=== PATIENT | male | born 2000 | race African-American/Black ===

== ENCOUNTER 2021-06-11 15:17 | Emergency (ER) | payer OTHER ==
[~2021-06-11] VITALS: Ht 175.3 cm; Wt 75.0 kg
[2021-06-11 17:44] LABS: BASO % 0.4 % (0.0-1.0); EOS % 0.3 % (0.0-3.0); HEMATOCRIT 33.7 % (42.0-52.0); LYMPH # 1.2 10^3/uL (1.5-5.0); LYMPH % 16.5 % (24.0-44.0); MEAN CORPUSCULAR HGB CONC 35.6 g/dl (32.0-36.5); MEAN CORPUSCULAR VOLUME 78.7 fl (80.0-96.0); MONO # 0.7 10^3/uL (0.0-0.8); MONO % 9.7 % (2.0-8.0); NEUTROPHILS # 5.5 10^3/uL (1.5-8.5); NEUTROPHILS % 72.7 % (36.0-66.0); PLATELET COUNT, AUTOMATED 202 10^3/uL (150-450); RED BLOOD COUNT 4.28 10^6/uL (4.30-6.10); WHITE BLOOD COUNT 7.5 10^3/uL (4.0-10.0)
[2021-06-11 17:51] LABS: INR 1.11; PROTHROMBIN TIME 14.7 SECONDS (12.7-14.5)
[2021-06-11 17:52] LABS: PARTIAL THROMBOPLASTIN TIME 36.9 SECONDS (25.9-37.0)
[2021-06-11 18:03] LABS: ALBUMIN 4.4 GM/DL (3.2-5.2); ALT/SGPT 25 U/L (12-78); BILIRUBIN,TOTAL 9.2 MG/DL (0.2-1.0); BLOOD UREA NITROGEN 12 MG/DL (7-18); CALCIUM LEVEL 9.3 MG/DL (8.5-10.1); CARBON DIOXIDE LEVEL 31 MEQ/L (21-32); CHLORIDE LEVEL 102 MEQ/L (98-107); GLUCOSE, FASTING 84 MG/DL (70-100); LIPASE 78 U/L (73-393); POTASSIUM SERUM 3.9 MEQ/L (3.5-5.1); SODIUM LEVEL 137 MEQ/L (136-145); TOTAL PROTEIN 7.7 GM/DL (6.4-8.2)
[2021-06-11 18:12] LABS: MONO REFLEX EBV COMP NEGATIVE (NEGATIVE)
[2021-06-11] MEDS ORDERED: KETOROLAC 30 MG/ML 1ML VIAL IV ONE (18:15)
[2021-06-11 18:24] LABS: BILIRUBIN,DIRECT 0.6 MG/DL (0.0-0.2)
--- NOTE | 2021-06-11 19:22 | REP ---
INDICATION: elev bili, pls look at liver, GB, spleen. COMPARISON: None. TECHNIQUE: Ultrasound evaluation of the complete abdomen was performed. FINDINGS: The liver is normal in size and echogenicity. The gallbladder is normal. The gallbladder wall is normal in thickness. The common bile duct measures 4 mm in diameter. The pancreas is unremarkable. There is moderate splenomegaly measuring 18.4 x 17.6 x 5.7 cm. The right kidney measures 10.0 x 4.4 x 4.2 cm and the left kidney measures 10.4 x 5.4 x 3.6 cm. The renal parenchymal echogenicity is normal. There are no focal abnormalities. There is no hydronephrosis. The abdominal aorta is unremarkable. IMPRESSION: Moderate splenomegaly. Otherwise unremarkable. <Electronically signed by Izaiah Betancur > 06/11/211917
[2021-06-11 20:15] VITALS: BP 130/65
[2021-06-11 21:24] LABS: HEPATITIS B CORE ANTIBODY IGM NEGATIVE (NEGATIVE); HEPATITIS B SURFACE ANTIGEN NEGATIVE (NEGATIVE); HEPATITIS C VIRUS ABY INDEX 0.1 INDEX (<0.8)
[2021-06-13 14:08] LABS: EBV AB TO NUCLEAR ANTIGEN >600.0 U/mL (0.0-17.9); EBV VIRAL CAPSID AG IgG >600.0 U/mL (0.0-17.9); EBV VIRAL CAPSID AG IgM <36.0 U/mL (0.0-35.9)
== END 2021-06-11 20:18 | disposition home or self-care (01) ==
LOC: M ED 15:17
DX: E80.7 Disorder of bilirubin metabolism, unspecified (principal); R16.1 Splenomegaly, not elsewhere classified; H15.89 Other disorders of sclera; R10.12 Left upper quadrant pain; Z88.1 Allergy status to other antibiotic agents
CPT/HCPCS: 76700; 80053; 81001; 82248; 83690; 85025; 85610; 85730; 86308; 86664; 86665; 86705; 86709; 86803; 87340; 96374; 99284; J1885

== ENCOUNTER → 2021-06-13 | Outpatient (CLI) | payer OTHER ==
[2021-06-13 17:48] LABS: ALBUMIN 4.1 GM/DL (3.2-5.2); ALT/SGPT 28 U/L (12-78); BILIRUBIN,DIRECT 0.6 MG/DL (0.0-0.2); BILIRUBIN,TOTAL 9.9 MG/DL (0.2-1.0); BLOOD UREA NITROGEN 12 MG/DL (7-18); CALCIUM LEVEL 9.1 MG/DL (8.5-10.1); CARBON DIOXIDE LEVEL 31 MEQ/L (21-32); CHLORIDE LEVEL 106 MEQ/L (98-107); CREATININE FOR GFR 1.03 MG/DL (0.70-1.30); GLUCOSE, FASTING 77 MG/DL (70-100); LIPASE 123 U/L (73-393); POTASSIUM SERUM 4.6 MEQ/L (3.5-5.1); SODIUM LEVEL 140 MEQ/L (136-145); TOTAL PROTEIN 7.4 GM/DL (6.4-8.2)
== END ==
LOC: M LAB 16:06
PROVIDERS: ATTEND Physician Assistant
DX: E80.7 Disorder of bilirubin metabolism, unspecified (principal); R10.9 Unspecified abdominal pain

== ENCOUNTER 2022-05-05 17:12 | Emergency (ER) | payer OTHER ==
[~2022-05-05] VITALS: Ht 175.3 cm; Wt 75.5 kg
[2022-05-05 18:35] LABS: BASO % 0.2 % (0.0-1.0); EOS # 0.1 10^3/uL (0.0-0.5); EOS % 1.1 % (0.0-3.0); HEMATOCRIT 31.7 % (42.0-52.0); HEMOGLOBIN 11.2 g/dl (13.5-17.5); LYMPH # 1.3 10^3/uL (1.5-5.0); LYMPH % 23.7 % (24.0-44.0); MEAN CORPUSCULAR HEMOGLOBIN 28.4 pg (27.0-33.0); MEAN CORPUSCULAR HGB CONC 35.3 g/dl (32.0-36.5); MEAN CORPUSCULAR VOLUME 80.3 fl (80.0-96.0); MONO # 0.3 10^3/uL (0.0-0.8); MONO % 5.5 % (2.0-8.0); NEUTROPHILS # 3.8 10^3/uL (1.5-8.5); NEUTROPHILS % 69.1 % (36.0-66.0); PLATELET COUNT, AUTOMATED 209 10^3/uL (150-450); RED BLOOD COUNT 3.95 10^6/uL (4.30-6.10); WHITE BLOOD COUNT 5.5 10^3/uL (4.0-10.0)
[2022-05-05] MEDS ORDERED: GI COCKTAIL 50ML BTL(HYOSCYAMINE/MAALOX/LIDOCAINE VISCOUS)(1:3:1) PO ONE (19:05)
[2022-05-05 19:11] LABS: BLOOD UREA NITROGEN 10 MG/DL (7-18); CARBON DIOXIDE LEVEL 30 MEQ/L (21-32); CHLORIDE LEVEL 103 MEQ/L (98-107); CREATININE FOR GFR 0.96 MG/DL (0.70-1.30); GLUCOSE, FASTING 96 MG/DL (70-100); POTASSIUM SERUM 4.1 MEQ/L (3.5-5.1); SODIUM LEVEL 138 MEQ/L (136-145)
[2022-05-05] MEDS ORDERED: CARA1TAB6 PO (20:24)
[2022-05-05] MEDS ORDERED: OMEP40CA4 PO (20:24)
[2022-05-05 20:33] VITALS: BP 131/78
== END 2022-05-05 20:36 | disposition home or self-care (01) ==
LOC: M ED 17:12
DX: R10.10 Upper abdominal pain, unspecified (principal); R16.1 Splenomegaly, not elsewhere classified; Z88.1 Allergy status to other antibiotic agents

== ENCOUNTER 2023-07-06 12:01 | Emergency (ER) | payer OTHER ==
[~2023-07-06] VITALS: Ht 175.3 cm; Wt 75.0 kg
[~2023-07-06 12:01] MED LIST: CARA1TAB6 PO; FERR325T3 PO; FOLI1TAB11 PO; OMEP40CA4 PO
[2023-07-06 16:40] VITALS: BP 124/76; TEMP 97.6; O2SAT 100
[2023-07-06] MEDS ORDERED: CEPH500C PO (18:21)
[2023-07-06] MEDS ORDERED: CEPHALEXIN 500 MG CAP PO ONE (18:25)
== END 2023-07-06 18:29 | disposition home or self-care (01) ==
LOC: M ED 12:01
DX: L66.2 Folliculitis decalvans (principal); R16.1 Splenomegaly, not elsewhere classified; Z79.2 Long term (current) use of antibiotics; Z88.1 Allergy status to other antibiotic agents